=== PATIENT | female | born 1960 | race Caucasian/White ===

== ENCOUNTER 2016-10-04 17:48 | Emergency (ER) | payer OTHER ==
[2016-10-04 18:42] VITALS: BP 122/63; PULSE 88; TEMP 98.8; BMI 24.0
--- NOTE | 2016-10-04 19:23 | PDOC ---
History of Present Illness - General Chief Complaint: Substance Abuse Stated Complaint: WITHDRAWAL Time Seen by Provider: 10/04/16 18:57 History Source: Patient Exam Limitations: Clinical Condition - History of Present Illness Initial Comments: 10/04/16 19:11 56yo Female patient presents to ED via EMS for possible drug overdose. While interviewing patient, patient found to be A&O x2 with periods of confusion. Patient cannot explain to provider why she would like to be seen in emergency department. No acute distress noted. Associated Symptoms: reports: confusion Past History - Travel Traveled outside of the country in the last 30 days: No Close contact w/someone who was outside of country & ill: No - Past Medical History Allergies/Adverse Reactions: Allergies Allergy/AdvReac Type Severity Reaction Status Date / Time Penicillins Allergy Unknown Verified 10/04/16 17:57 Sulfa (Sulfonamide Allergy Unknown Verified 10/04/16 17:57 Antibiotics) Home Medications: Ambulatory Orders Alprazolam [Xanax] 0 mg PO DAILY 10/04/16 Methadone [Dolophine -] 0 mg PO DAILY 10/04/16 Zolpidem Tartrate [Ambien] 0 mg PO HS 10/04/16 Psychiatric Problems: Yes Other medical history: ADDICTION. METHADONE PROGRAM. - Psycho/Social/Smoking Cessation Hx Anxiety: No Suicidal Ideation: No Smoking History: Current every day smoker Number of Cigarettes Smoked Daily: 20 Information on smoking cessation initiated: No Hx Alcohol Use: Yes Drug/Substance Use Hx: Yes Substance Use Type: Alcohol, Heroin Review of Systems - Review of Systems Able to Perform ROS?: No Is the patient limited Romansh proficient: No Neurological: Yes: Other (Confusion). No: Headache, Seizure, Weakness, Unsteady Gait, Ataxia All Other Systems: Reviewed and Negative *Physical Exam - Vital Signs Last Vital Signs Temp Pulse Resp BP Pulse Ox 98.8 F 88 18 122/63 10/04/16 17:59 10/04/16 17:59 10/04/16 17:59 10/04/16 17:59 - Physical Exam General Appearance: No: Apparent Distress, Mild Distress, Moderate Distress, Severe Distress Neck: positive: Trachea midline, Supple. negative: Decreased range of motion, Stridor, Lymphadenopathy (R), Lymphadenopathy (L) Respiratory/Chest: positive: Lungs Clear, Normal Breath Sounds. negative: Chest Tender, Respiratory Distress, Accessory Muscle Use, Labored Respiration, Rapid RR, Decreased Breath Sounds, Stridor, Wheezing Cardiovascular: positive: Regular Rhythm, Regular Rate Gastrointestinal/Abdominal: positive: Normal Bowel Sounds, Soft. negative: Distended, Guarding, Rebound, Tenderness, Hernia, Mass Musculoskeletal: positive: Normal Inspection. negative: CVA Tenderness Extremity: positive: Normal Capillary Refill, Normal Inspection, Normal Range of Motion. negative: Pedal Edema, Swelling, Calf Tenderness, Erythema, Inflammation Integumentary: positive: Normal Color, Dry, Warm Neurologic: positive: Alert, Motor Strength 5/5, Confused, Disoriented ED Treatment Course - LABORATORY CBC & Chemistry Diagram: 10/04/16 19:46 - RADIOLOGY Radiology Studies Ordered: Category Date Time Status HEAD CT WITHOUT CONTRAST [CT] Stat CT Scan 10/04/16 19:04 Ordered Progress Note - Progress Note Progress Note: Patient not willing to give actual urine sample. Patient went into bathroom, pour water into specimen cup and tried to submit as urine sample. Patient is more coherent, A&O x3. Head CT: Neg. She was given 50 mg of Methadone po. Will d /c to home. *DC/Admit/Observation/Transfer Diagnosis at time of Disposition: Dependent drug abuse - Discharge Dispostion Disposition: HOME Condition at time of disposition: Improved Admit: No - Patient Instructions Printed Discharge Instructions: DI for Drug Abuse and Drug Addiction Additional Instructions: FOLLOW UP WITH YOUR PRIMARY CARE PROVIDER NEEDED. CALL TO SCHEDULE APPOINTMENT. Print Language: POLISH
[2016-10-04 19:54] LABS: BASOPHIL 0.2 % (0-2.0); EOSINOPHIL 0.7 % (0-4.5); MCHC 33.7 g/dl (32.0-36.0); MEAN CELL VOLUME 97.8 fl (80-96); MEAN PLT VOLUME 9.2 fl (7.5-11.1); PLATELET COUNT 169 K/MM3 (134-434); RDW 16.3 % (11.6-15.6); WHITE BLOOD COUNT 9.9 K/mm3 (4.0-10.0)
[2016-10-04 20:18] LABS: ALCOHOL < 5.0 mg/dl (0-5)
[2016-10-04 20:24] LABS: SALICYLATE < 4.0 mg/dl (0.0-30.0)
[2016-10-04] MEDS ORDERED: METHADONE HCL 10 MG TABLET PO ONE (22:28)
[2016-10-04] MEDS ORDERED: METHADONE HCL 10 MG TABLET ONE (22:40)
[2016-10-04] MEDS ORDERED: METHADONE HCL 40 MG DISPERSABLE TABLET ONE (22:41)
== END 2016-10-04 23:40 | disposition home or self-care (01) ==
LOC: JER 17:48
DX: F11.20 Opioid dependence, uncomplicated (principal); Z59.0 Homelessness
CPT/HCPCS: 36415; 70450-TC; 80307; 85025; 99282-25